=== PATIENT | male | born 1990 | race Two or more races ===

== ENCOUNTER 2024-01-28 15:24 | Emergency (ER) | payer OTHER ==
[~2024-01-28] VITALS: Ht 172.7 cm; Wt 88.0 kg
[2024-01-28 17:40] VITALS: BP 127/76; PULSE 74; RESP 16; TEMP 97.9; O2SAT 97
== END 2024-01-28 17:50 | disposition home or self-care (01) ==
LOC: ER 15:24
DX: M23.92 Unspecified internal derangement of left knee (principal)
CPT/HCPCS: 73562